=== PATIENT | female | born 1980 | race Caucasian/White ===

== ENCOUNTER 2022-08-10 23:46 | Observation (INO) | payer BC ==
[2022-08-11] MEDS ORDERED: Ondansetron 4 MG/2 ML SDV IVPUSH ONE (00:03)
[2022-08-11] MEDS ORDERED: HYDROmorphone 0.5 MG/0.5 ML Syringe IVPUSH ONE (00:03)
[2022-08-11] MEDS ORDERED: Sodium Chloride 0.9% 1,000 ML IV SCH (00:15)
[2022-08-11 00:29] LABS: ESTIMATED GFR 82 mL/min (>60)
[2022-08-11] MEDS ORDERED: Alum Hydrox/Mag Hydrox/Simeth 15 ML, Lidocaine 2% 15 ML PO ONE ×2 (00:33)
[2022-08-11] MEDS ORDERED: Sodium Chloride 0.9% 50 ML IV STA (01:02)
[2022-08-11] MEDS ORDERED: Iopamidol 612 MG/ML 100 ML Bottle IV STA (01:02)
[2022-08-11 02:21] LABS: CORONAVIRUS COVID-19 NAA NEGATIVE (NEGATIVE)
[2022-08-11] MEDS ORDERED: Piperacillin/Tazobactam 2.25 GM in Sodium Chloride 0.9% 50 ML IV SCH (03:00)
[2022-08-11] MEDS ORDERED: Bisacodyl 5 MG Tab PO PRN (03:02)
[2022-08-11] MEDS ORDERED: Albuterol 0.083% 2.5 MG/3 ML Neb Soln NEB PRN (03:02)
[2022-08-11] MEDS ORDERED: LORazepam 2 MG/ML SDV IV PRN (03:02)
[2022-08-11] MEDS ORDERED: oxyCODONE 5 MG Tab PO PRN (03:02)
[2022-08-11] MEDS ORDERED: Docusate Sodium 100 MG Cap PO PRN (03:02)
[2022-08-11] MEDS ORDERED: Albuterol/Ipratropium 3.0-0.5 MG/3 ML Neb Soln NEB PRN (03:02)
[2022-08-11] MEDS ORDERED: Ondansetron 4 MG Tab.DIS PO PRN (03:02)
[2022-08-11] MEDS ORDERED: Acetaminophen 325 MG Tab PO PRN (03:02)
[2022-08-11] MEDS: Dextrose 5%-Lactated Ringers 1,000 ML IV SCH ×3 (03:07→20:02)
[2022-08-11] MEDS: HYDROmorphone 1 MG/ML Syringe IVPUSH PRN ×3 (03:30→08:17)
[2022-08-11] MEDS: Pantoprazole 40 MG Vial IV SCH (07:19)
[2022-08-11] MEDS: Ondansetron 4 MG/2 ML SDV IV PRN ×2 (08:16→15:51)
[2022-08-11] MEDS ORDERED: Scopolamine 1.5 MG Transdermal Patch TOP SCH (09:00)
[2022-08-11] MEDS ORDERED: fentaNYL 250 MCG/5 ML SDV ONE (09:24)
[2022-08-11] MEDS ORDERED: Succinylcholine 200 MG/10 ML MDV ONE (09:25)
[2022-08-11] MEDS ORDERED: Dexamethasone 4 MG/ML SDV ONE (09:25)
[2022-08-11] MEDS ORDERED: Glycopyrrolate 0.2 MG/ML 5 ML MDV ONE (09:25)
[2022-08-11] MEDS ORDERED: Neostigmine Methylsulfate 1 MG/ML 5 ML Syringe ONE (09:25)
[2022-08-11] MEDS ORDERED: Ondansetron 4 MG/2 ML SDV ONE (09:25)
[2022-08-11] MEDS ORDERED: Propofol 200 MG/20 ML SDV ONE (09:25)
[2022-08-11] MEDS ORDERED: Rocuronium 50 MG/5 ML Vial ONE (09:25)
[2022-08-11] MEDS ORDERED: Indocyanine Green 25 MG SDV IV ONE (09:33)
[2022-08-11] MEDS ORDERED: Piperacillin/Tazobactam/Dext 2.25 GM in Premix Bag 1 BAG IV SCH (10:00)
[2022-08-11] MEDS ORDERED: Meropenem 500 MG SDV ONE (10:45)
[2022-08-11] MEDS ORDERED: Lidocaine 1% with EPINEPHrine 1:100,000 50 ML MDV ONE (10:45)
[2022-08-11] MEDS ORDERED: Bupivacaine 0.5% 50 ML MDV ONE (10:45)
[2022-08-11] MEDS ORDERED: Lactated Ringers 1,000 ML ONE (13:26)
[2022-08-11] MEDS ORDERED: fentaNYL 100 MCG/2 ML SDV ONE (13:45)
[2022-08-11] MEDS ORDERED: Ketamine 500 MG/5 ML MDV IV SCH (14:15)
[2022-08-11] MEDS ORDERED: Ketamine 19 MG in Sodium Chloride 0.9% 19.81 ML IV SCH (14:15)
[2022-08-11] MEDS ORDERED: HYDROmorphone 0.5 MG/0.5 ML Syringe IVPUSH PRN (15:00)
[2022-08-11] MEDS ORDERED: Albuterol/Ipratropium 3.0-0.5 MG/3 ML Neb Soln INH PRN (15:00)
[2022-08-11] MEDS: HYDROmorphone 1 MG/ML Syringe IV PRN ×3 (15:15→19:30)
[2022-08-11] MEDS: Albuterol/Ipratropium 3.0-0.5 MG/3 ML Neb Soln INH SCH ×2 (15:57→21:02)
[2022-08-11] MEDS: Piperacillin/Tazobactam/Dext 3.375 GM in Premix Bag 1 BAG IV SCH ×2 (15:59→21:01)
[2022-08-11] MEDS: Acetaminophen 500 MG Tab PO SCH (19:41)
[2022-08-12] MEDS: HYDROmorphone 1 MG/ML Syringe IV PRN (00:04)
[2022-08-12] MEDS: Acetaminophen 500 MG Tab PO SCH ×2 (03:06→08:04)
[2022-08-12] MEDS: Piperacillin/Tazobactam/Dext 3.375 GM in Premix Bag 1 BAG IV SCH (03:50)
[2022-08-12] MEDS: Dextrose 5%-Lactated Ringers 1,000 ML IV SCH (07:14)
[2022-08-12] MEDS: Albuterol/Ipratropium 3.0-0.5 MG/3 ML Neb Soln INH SCH ×2 (07:35→10:54)
[2022-08-12] MEDS ORDERED: HYDROmorphone 2 MG Tab PO PRN (07:39)
[2022-08-12] MEDS ORDERED: Ondansetron 4 MG Tab.DIS PO PRN (07:41)
[2022-08-12] MEDS: Pantoprazole 40 MG Vial IV SCH (08:04)
[2022-08-12] MEDS ORDERED: SCOPOLAMINE PATCH CHECK TOP SCH (09:00)
[2022-08-12] MEDS ORDERED: Amoxicillin/Clavulanate K 875-125 MG Tab PO SCH (09:00)
[2022-08-12] MEDS ORDERED: Ketamine 19 MG in Sodium Chloride 0.9% 19.81 ML IV SCH (11:00)
[2022-08-12] MEDS ORDERED: Ketamine 500 MG/5 ML MDV IV SCH (11:00)
== END 2022-08-12 12:15 | disposition home or self-care (01) ==
LOC: JP.ED 23:46 → JP.MS 08-11 01:55 → INTOOBSV 08-11 01:55
PROVIDERS: ADMIT Hospitalist; ATTEND Hospitalist
DX: K80.12 Calculus of gallbladder with acute and chronic cholecystitis without obstruction (principal); K42.0 Umbilical hernia with obstruction, without gangrene; K43.0 Incisional hernia with obstruction, without gangrene; Z98.890 Other specified postprocedural states; Z20.822 Contact with and (suspected) exposure to COVID-19
CPT/HCPCS: 0241U; 36415; 47562; 74177; 76705; 80053; 81001; 82247; 83690; 83735; 84075; 85025; 85027; 87070; 87075; 87205; 88304; 94640; 99222; A9270; C9113; J0131; J0171; J0330; J1100; J1170; J2060; J2405; J2543; J2704; J2710; J2795; J3010; J3490; J7030; J7120; J7121; Q9967; J2185; J7620